=== PATIENT | male | born 2000 | race Caucasian/White ===

== ENCOUNTER 2022-01-03 21:43 | Emergency (ER) | payer SELFPAY ==
[~2022-01-03] VITALS: Ht 172 cm; Wt 63.0 kg
[2022-01-03] MEDS ORDERED: KETOROLAC 30 MG/ML VIAL IVP STA (22:04)
--- NOTE | 2022-01-03 22:13 | ED GU-Male ---
General Chief Complaint: - Reproductive Stated Complaint: TESTICLE SWELLING / PAIN Nursing Triage Note: complaint of testicular pain, states right side. patient verbalized started 2 weeks ago, comes and goes. states pain worse today. denies penial discharge. states able to urinate Source: patient History of Present Illness Date Seen by Provider: Jan 03, 2022 Time Seen by Provider: 21:57 Initial Comments PT ARRIVES VIA POV FROM HOME C/O RIGHT TESTICLE PAIN AND SWELLING SINCE SOMETIME EARLIER TODAY STATES HE HAS BEEN HAVING THIS PROBLEM OFF AND ON FOR THE LAST 2 WEEKS. STATES IT COMES AND GOES. PAIN IS MUCH WORSE TODAY, SWELLING IS MUCH LESS TODAY NO PAIN ON URINATION NO PENILE DISCHARGE OR LESIONS/SORES NO FEVER HAS NOT SOUGHT CARE AT ANY TIME HAS NOT TAKEN ANYTHING FOR PAIN AT ANY TIME PT SMOKES CIGARETTES AND CHEWS TOBACCO, USES MARIJUANA AND DRINKS ETOH ON REGULAR BASIS INCLUDING TONIGHT HAS NOT HAD COVID OR FLU VACCINES PCP: DIANE CARL. Allergies and Home Medications Allergies Uncoded Allergies: CILLINS (Allergy, Unknown, 09/13/13) LIVE VIRUS (Allergy, Unknown, 09/13/13) Patient Home Medication List Home Medication List Reviewed: Yes Doxycycline Hyclate (Doxycycline Hyclate) 100 Mg Tablet, 100 MG PO BID Prescribed by: SHIVA CREWS on 01/03/222339 Naproxen (Naproxen) 500 Mg Tablet.dr, 500 MG PO BID Prescribed by: SHIVA CREWS on 01/03/22 234 Review of Systems Review of Systems Constitutional: no symptoms reported Genitourinary: see HPI Skin: no symptoms reported Past Bkoqyhr-Udghll-Ilthnk Hx Patient Social History Tobacco Use?: Yes Tobacco type used: Cigarettes Smoking Status: Current Everyday Smoker Smokeless Tobacco Frequency: Current Everyday User Substance use?: Yes Substance type: Methamphetamine, Marijuana Additional substance use comme: UDS + FOR METH/AMPHETAMINES AND THC 01/03/22 Substance frequency: Daily Alcohol Use?: Yes Alcohol Frequency: Couple times a week Past Medical History Surgeries: Yes (CLEFT PALATE SURGERY X 1; BILATERAL KNEE SCOPES) Orthopedic Respiratory: No Cardiac: No Neurological: No Genitourinary: No Gastrointestinal: No Musculoskeletal: Yes (BILATERAL KNEE SCOPES) Scoliosis Endocrine: No HEENT: Yes (CLEFT PALATE REPAIR X 1) Cancer: No Psychosocial: No Integumentary: No Blood Disorders: No Physical Exam Vital Signs Vital Signs - First Documented 6/5/22 22:01 Temp 36.3 Pulse 40 Resp 20 B/P (MAP) 122/72 (89) Pulse Ox 99 O2 Delivery Room Air Capillary Refill : Less Than 3 Seconds Height, Weight, BMI Height: 5'7" Weight: 135lbs. oz. [id number]; 21.00 BMI Method:Stated General Appearance: thin, other (EXTREMELY DRAMATIC, WALKS AND MOVES VERY SLOWLY AND DRAMATICALLY; REEKS OF CIGARETTES AND MARIJUANA, ALSO HAS ODOR OF ALCOHOL) Cardiovascular: regular rate, rhythm Respiratory: normal breath sounds Gastrointestinal: soft Male: no hernia; No erythema, No inguinal tenderness; testicular tenderness, other (MILD TO MODERATE SWELLING TO RIGHT TESTICULAR AREA, WITH MODERATE TENDERNESS TO EPIDIDYMYIS AND INFERIOR ASPECT OF RIGHT TESTICLE. NO SKIN CHANGES. PENIS IS CIRCUMCISED AND IS NORMAL IN APPEARANCE, NO DISCHARGE, NO LESIONS/ULCERATIONS/SORES, OR ANY SKIN CHANGES. ) Back: no CVA tenderness Extremities: normal inspection Neurologic/Psychiatric: no motor/sensory deficits, alert, oriented x 3 Skin: normal color, warm/dry, tattoos/piercings (EXTENSIVE TATTOOS OVER ENTIRE BODY) Progress/Results/Core Measures Suspected Sepsis SIRS Temperature: Pulse: 40 Respiratory Rate: 20 Blood Pressure 122 /72 Mean: 89 Results/Orders Lab Results Laboratory Tests Test 01/03/22 22:51 Range/Units Urine Color YELLOW Urine Clarity CLEAR Urine pH 6.0 5-9 Urine Specific [place] >=1.030 1.016-1.022 Urine Protein TRACE H NEGATIVE Urine Glucose (UA) NEGATIVE NEGATIVE Urine Ketones NEGATIVE NEGATIVE Urine Nitrite NEGATIVE NEGATIVE Urine Bilirubin 1+ H NEGATIVE Urine Urobilinogen 0.2 < = 1.0 MG/DL Urine Leukocyte Esterase 1+ H NEGATIVE Urine RBC (Auto) NEGATIVE NEGATIVE Urine RBC 0-2 /HPF Urine WBC 10-25 H /HPF Urine Squamous Epithelial Cells NONE /HPF Urine Renal Epithelial Cells NONE /HPF Urine Crystals NONE /LPF Urine Bacteria NEGATIVE /HPF Urine Casts NONE /LPF Urine Mucus MODERATE H /LPF Urine Culture Indicated YES Urine Opiates Screen NEGATIVE NEGATIVE Urine Oxycodone Screen NEGATIVE NEGATIVE Urine Methadone Screen NEGATIVE NEGATIVE Urine Propoxyphene Screen NEGATIVE NEGATIVE Urine Barbiturates Screen NEGATIVE NEGATIVE Ur Tricyclic Antidepressants Screen NEGATIVE NEGATIVE Urine Phencyclidine Screen NEGATIVE NEGATIVE Urine Amphetamines Screen POSITIVE H NEGATIVE Urine Methamphetamines Screen POSITIVE H NEGATIVE Urine Benzodiazepines Screen NEGATIVE NEGATIVE Urine Cocaine Screen NEGATIVE NEGATIVE Urine Cannabinoids Screen POSITIVE H NEGATIVE My Orders Orders - SHIVA CREWS DO Ed Iv/Invasive Line Start (01/03/22 22:04) Monitor-Rhythm Ecg Trace Only (01/03/22 22:04) Cbc With Automated Diff (01/03/22 22:04) Comprehensive Metabolic Panel (01/03/22 22:04) Hs C Reactive Protein (01/03/22 22:04) Drug Screen Stat (Urine) (01/03/22 22:04) Ua Culture If Indicated (01/03/22 22:04) Erythrocyte Sedimentation Rate (01/03/22 22:04) Us Scrotum (Testicle) [id number] (01/03/22 22:04) Ketorolac Injection (Toradol Injection) (01/03/22 22:04) Neis Marcelino Dna Urine Test (01/03/22 22:04) Chlamydia Trachomatis Urine (01/03/22 22:04) Urine Culture (01/03/22 22:51) Azithromycin Tablet (Zithromax Tablet) (01/03/22 23:38) Ketorolac Injection (Toradol Injection) (01/03/22 23:38) Ceftriaxone (Rocephin) (01/03/22 23:45) Lidocaine 1% Inj 20 Ml (Xylocaine 1% Inj (01/03/22 23:45) Medications Given in ED Current Medications Medications Dose Ordered Sig/Rut Route Start Time Stop Time Status Last Admin Dose Admin Ceftriaxone Sodium 1,000 mg ONCE ONCE IM 01/03/22 23:45 01/03/22 23:46 DC 01/03/22 23:58 1,000 MG Lidocaine HCl 2.1 ml ONCE ONCE INJ 01/03/22 23:45 01/03/22 23:46 DC 01/03/22 23:58 2.1 ML Vital Signs/I&O 01/03/22 01/04/22 22:01 00:02 Temp 36.3 36.3 Pulse 40 40 Resp 20 20 B/P (MAP) 122/72 (89) 122/72 Pulse Ox 99 99 O2 Delivery Room Air Room Air Capillary Refill : Less Than 3 Seconds Blood Pressure Mean: 89 Progress Note : Progress Note PT REFUSES IV OR ANY BLOOD TESTS, BUT AGREES TO ULTRASOUND AND URINE TEST STATES HE IS "TERRIFIED OF NEEDLES" AND "DOESN'T SWALLOW PILLS" PT BELLIGERANT AT TIMES, VERY IMPATIENT, NOT WANTING TO WAIT FOR TEST RESULTS AT TIMES PT IS OUTSIDE OF ROOM, PACING/SQUATTING, ETC AND MOVING WITHOUT ANY DIFFICULTY, VERY DRAMATIC THEN AT TIMES PT IS LAYING ON ER CART WITH GIRLFRIEND, LAUGHING [id number]--INSPECTING AND TESTING LEAD HAND IS HERE. STATES IT DOES NOT HURT ANYMORE, AND INSISTS ON WALKING TO ULTRASOUND AND REFUSES WHEELCHAIR TRANSPORT. PT WALKS AND MOVES WITHOUT DIFFICULTY PT GIVEN SHOT OF ROCEPHIN AND TORADOL AND ZITHROMAX PILLS, WHICH PT SWALLOWED WITHOUT DIFFICULTY PRIOR TO DISMISSAL. PT WALKS OUT OF ER WITHOUT ANY DIFFICULTY Diagnostic Imaging Comments SCROTAL ULTRASOUND--PER RADIOLOGIST REPORT AT 0059 Right testicle measures 3.8 x 2.5 x 4.1 cm. Left testicle measures 3.6 x 2.6 x 2.5 cm. The testes have normal blood flow and echogenicity. The right epididymis is enlarged and hyperemic. There is a small right hydrocele. There are no varicoceles. The left scrotal sac is unremarkable. IMPRESSION: Right epididymitis Reviewed: Reviewed by Me Departure Impression Primary Impression: Epididymitis, right Additional Impressions: Methamphetamine use Marijuana use Disposition: 01 HOME, SELF-CARE Condition: Stable Departure-Patient Inst. Decision time for Depature: 23:40 Referrals: NO,LOCAL PHYSICIAN (PCP) Primary Care Physician Patient Instructions: Epididymitis (DC) Add. Discharge Instructions: FOLLOW UP WITH [facility] IN 4-5 DAYS FOR FURTHER CARE, CALL IN THE MORNING TO SCHEDULE APPOINTMENT All discharge instructions reviewed with patient and/or family. Voiced understanding. Scripts Naproxen (Naproxen) 500 Mg Tablet. 500 MG PO BID, #20 TAB Prov: SHIVA CREWS DO 01/03/22 Doxycycline Hyclate (Doxycycline Hyclate) 100 Mg Tablet 100 MG PO BID, #20 TAB 0 Refills Prov: SHIVA CREWS DO 01/03/22 SHIVA CREWS DO Jan 03, 2022 22:13
[2022-01-03 22:57] LABS: CLARITY,URINE CLEAR; COLOR,URINE YELLOW; GLUCOSE, URINE (UA) NEGATIVE (NEGATIVE); KETONES,URINE NEGATIVE (NEGATIVE); LEUKOCYTE ESTERASE ,URINE 1+ (NEGATIVE); NITRITE,URINE NEGATIVE (NEGATIVE); PROTEIN,URINE TRACE (NEGATIVE)
[2022-01-03 23:03] LABS: BACTERIA,URINE NEGATIVE /HPF; RBC,URINE 0-2 /HPF
[2022-01-03 23:13] LABS: AMPHETAMINE SCREEN, URINE POSITIVE (NEGATIVE); BARBITURATE SCREEN URINE NEGATIVE (NEGATIVE); BENZODIAZEPINES SCREEN URINE NEGATIVE (NEGATIVE); CANNABINOID SCREEN, URINE POSITIVE (NEGATIVE); COCAINE SCREEN URINE NEGATIVE (NEGATIVE); METHADONE STAT NEGATIVE (NEGATIVE); OPIATE SCREEN URINE NEGATIVE (NEGATIVE); OXYCODONE STAT NEGATIVE (NEGATIVE); PROPOXYPHENE STAT NEGATIVE (NEGATIVE); TRICYCLIC ANTIDEPRESSANTS SCRE NEGATIVE (NEGATIVE)
[2022-01-03] MEDS ORDERED: KETOROLAC 60 MG/2 ML VIAL IM STA (23:38)
[2022-01-03] MEDS ORDERED: AZITHROMYCIN 250 MG TAB (ZITHROMAX) PO STA (23:38)
[2022-01-03] MEDS ORDERED: DOXY100T2 PO (23:40)
[2022-01-03] MEDS ORDERED: NAPR500T8 PO (23:40)
[2022-01-03] MEDS ORDERED: LIDOCAINE 1% INJ 20 ML VIAL INJ ONE (23:45)
[2022-01-03] MEDS ORDERED: cefTRIAXone 1,000 MG VIAL IM ONE (23:45)
[2022-01-04 00:02] VITALS: BP 122/72
--- NOTE | 2022-01-04 00:40 | Diagnostic Imaging Report ---
PROCEDURE: US Scrotum. TECHNIQUE: Multiple real-time grayscale images were obtained over the scrotum in various projections bilaterally. INDICATION: Right scrotal pain Right testicle measures 3.8 x 2.5 x 4.1 cm. Left testicle measures 3.6 x 2.6 x 2.5 cm. The testes have normal blood flow and echogenicity. The right epididymis is enlarged and hyperemic. There is a small right hydrocele. There are no varicoceles. The left scrotal sac is unremarkable. IMPRESSION: Right epididymitis Dictated by: Dictated on workstation # [id number]
[2022-01-04 08:03] LABS: BILIRUBIN,URINE 1+ (NEGATIVE)
== END 2022-01-04 00:04 | disposition home or self-care (01) ==
LOC: EDUNIT# 21:43 → ER 21:44
DX: N45.1 Epididymitis (principal); N43.3 Hydrocele, unspecified; F10.20 Alcohol dependence, uncomplicated; F12.20 Cannabis dependence, uncomplicated; F15.20 Other stimulant dependence, uncomplicated; F17.210 Nicotine dependence, cigarettes, uncomplicated
CPT/HCPCS: 36415; 76870; 80306; 81000; 87088; 87491; 87591